=== PATIENT | female | born 1995 | race Caucasian/White ===

== ENCOUNTER 2016-07-15 22:38 | Emergency (ER) | payer BC ==
[~2016-07-15] VITALS: Ht 142.2 cm; Wt 46.1 kg
[~2016-07-15 22:38] MED LIST: LAMICTAL 25MG T25 MG; RITALIN 5MG5 MG/TAB; SERAX 10MG10 MG/CAP; ZOFRAN ODT4 MG PO; ZOLOFT 25MG25 MG
[2016-07-15 22:42] VITALS: TEMP 98.7
[2016-07-15] MEDS ORDERED: CELEXA10 MG (22:46)
[2016-07-15 23:48] LABS: HEMATOCRIT 42.3 % (37.0-47.0); HEMOGLOBIN 14.4 g/dl (12.5-16.0); MEAN CELL VOLUME 92 fl (80.0-100.0); MEAN CORPUSCULAR HEMOGLOBIN 31 pg (27.0-31.0); MEAN CORPUSCULAR HGB CONC 34 g/dl (33.0-37.0); MEAN PLATELET VOLUME 10.6 fl (7.4-10.4); PLATELET COUNT 191 K/mm3 (130-400); REDCELL DISTRIBUTION WIDTH-CV 11.2 % (11.5-14.5); WHITE BLOOD COUNT 6.7 K/mm3 (4.8-10.8)
[2016-07-15 23:50] LABS: PH 6 (5-8); URINE APPEARANCE Clear; URINE BACTERIA Rare /hpf; URINE BILIRUBIN Negative (NEGATIVE); URINE BLOOD Negative (NEGATIVE); URINE COLOR Yellow; URINE GLUCOSE Negative (NEGATIVE); URINE KETONE Trace (NEGATIVE); URINE UROBILINOGEN Negative (NEGATIVE); URINE WBC 0-2 /hpf
[2016-07-15 23:57] LABS: ADD PATHOLOGY DIFF REVIEW NO
[2016-07-16 00:26] LABS: ADJUSTED CALCIUM 9.3 mg/dL (8.4-10.2); ALBUMIN 4.6 gm/dL (3.5-5.0); BILIRUBIN,TOTAL 1.5 mg/dL (0.0-1.0); CALCIUM 9.8 mg/dL (8.4-10.2); CREATININE, serum 0.79 mg/dL (0.52-1.25); POTASSIUM 3.8 mmol/L (3.4-5.0); TOTAL PROTEIN 8.1 gm/dL (6.4-8.2)
[2016-07-16] MEDS ORDERED: LOMOTIL 0.025 M1 TAB PO (00:35)
[2016-07-16] MEDS ORDERED: PHENERGAN 25 TA25 MG PO (00:35)
[2016-07-16 00:45] LABS: BAND 55 % (0-10); NEUTROPHILS 39 % (42.0-75.2); TOTAL CELLS COUNTED 100
[2016-07-16 00:46] LABS: PLATELET ESTIMATE NORMAL (NORMAL)
[2016-07-16 01:55] VITALS: BP 105/42; PULSE 93
== END 2016-07-16 01:50 | disposition home or self-care (01) ==
LOC: COL.ER 22:38
PROVIDERS: Emergency Medicine
DX: K52.9 Noninfective gastroenteritis and colitis, unspecified (principal)
CPT/HCPCS: J2060; J2765; J7030

== ENCOUNTER 2019-01-19 13:34 | Emergency (ER) | payer OTHER ==
[~2019-01-19] VITALS: Ht 142.2 cm; Wt 48.6 kg
[~2019-01-19 13:34] MED LIST changes: +CELEXA10 MG; +LOMOTIL 0.025 M1 TAB PO; +PHENERGAN 25 TA25 MG PO
[2019-01-19 13:50] VITALS: TEMP 99.7
[2019-01-19 14:08] LABS: COLLECTION METHOD CLEAN CATCH
[2019-01-19 14:14] LABS: PH 8 (5-8); SQUAMOUS EPITHELIAL 0-2 /hpf; URINE APPEARANCE Clear; URINE BACTERIA None Seen /hpf; URINE BILIRUBIN Negative (NEGATIVE); URINE BLOOD Negative (NEGATIVE); URINE COLOR Straw; URINE GLUCOSE Negative (NEGATIVE); URINE KETONE Negative (NEGATIVE); URINE LEUKOCYTE ESTERASE Negative (NEGATIVE); URINE NITRATE Negative (NEGATIVE); URINE PROTEIN(semi-quant) Negative (NEGATIVE); URINE RBC 0-2 /hpf; URINE UROBILINOGEN Negative (NEGATIVE)
[2019-01-19] MEDS ORDERED: CELEXA 20MG20 MG/TAB PO (14:24)
[2019-01-19 14:27] LABS: TRICYCLIC ANTIDEPRESS URINE NEGATIVE
[2019-01-19] MEDS ORDERED: INDERAL 10MG10 MG PO (14:29)
[2019-01-19] MEDS ORDERED: MOBIC15 MG PO (14:30)
[2019-01-19] MEDS ORDERED: ZOFRAN8 MG PO (14:31)
[2019-01-19] MEDS ORDERED: ATARAX 10MG10 MG/TAB (14:34)
[2019-01-19 14:47] LABS: BASO % 0.7 % (0.0-2.0); EOS # 0.1 (0.0-0.7); EOS % 1.3 % (0-4.0); GRAN # 3.5 (1.4-6.5); GRAN % 63.6 % (42.2-75.2); HEMOGLOBIN 15.3 g/dl (12.5-16.0); LYMPH # 1.6 (1.2-3.4); MEAN CELL VOLUME 91 fl (80.0-100.0); MEAN CORPUSCULAR HEMOGLOBIN 32 pg (27.0-31.0); MEAN CORPUSCULAR HGB CONC 35 g/dl (33.0-37.0); MEAN PLATELET VOLUME 10.3 fl (7.4-10.4); MONO # 0.3 (0.1-0.6); PLATELET COUNT 240 K/mm3 (130-400); RED BLOOD COUNT 4.83 M/mm3 (4.10-5.30)
[2019-01-19 14:55] LABS: ALANINE AMINOTRANSFERASE 11 U/L (9-52); ALKALINE PHOSPHATASE 61 U/L (50-136); ANION GAP 10 mmol/L (7-16); AST,SGOT 23 U/L (15-37); BILIRUBIN,TOTAL 0.4 mg/dL (0.0-1.0); BLOOD UREA NITROGEN 7 mg/dL (7-17); CALCIUM 10.5 mg/dL (8.4-10.2); CARBON DIOXIDE 24 mmol/L (22-30); CHLORIDE 107 mmol/L (98-107); CREATININE, serum 0.75 (0.52-1.25); GLUCOSE 101 mg/dL (74-106); PHOSPHOROUS 2.9 mg/dL (2.5-4.5); POTASSIUM 3.9 mmol/L (3.4-5.0); SODIUM 141 mmol/L (137-145); TOTAL PROTEIN 8.4 gm/dL (6.4-8.2)
[2019-01-19 14:56] LABS: ACETAMINOPHEN < 10 ug/mL (10-30); ALCOHOL(ethanol),MEDICAL < 10 mg/dL; SALICYLATE < 1.0 mg/dL
[2019-01-19 15:24] LABS: TSH w REFLEX 0.998 uIU/mL (0.465-4.680)
[2019-01-19 20:50] VITALS: BP 110/70; PULSE 82
== END 2019-01-19 20:50 ==
LOC: COL.ER 13:34
PROVIDERS: Emergency Medicine
DX: R45.851 Suicidal ideations (principal); F31.9 Bipolar disorder, unspecified

== ENCOUNTER → 2020-06-14 | Outpatient (CLI) | payer OTHER ==
[~2020-06-14] MED LIST changes: +ATARAX 10MG10 MG/TAB; +CELEXA 20MG20 MG/TAB PO; +INDERAL 10MG10 MG PO; +MOBIC15 MG PO; +ZOFRAN8 MG PO
== END ==
LOC: COL.LAB 12:07
DX: Z91.018 Allergy to other foods (principal)